=== PATIENT | female | born 1990 | race Caucasian/White ===

== ENCOUNTER 2024-01-06 23:05 | Emergency (ER) | payer MEDICAID, SELFPAY ==
[2024-01-06 23:08] VITALS: BP 151/99; PULSE 91; TEMP 36.7; O2SAT 100; BMI 31.8
--- NOTE | 2024-01-06 23:19 | XR_ITS ---
The [address] [address] Patient Name: LILA DUMONT MRN: [id number] date: 1990 Sex: F Assigned Patient Location: ER Current Patient Location: ED.MAIN Accession/Order Number: [id number] Exam Date: 01/06/2024 23:12 Report Date: 01/06/2024 23:54 At the request of: MELBA WALKER Procedure: XR foot RT min 3V EXAM: XR foot RT min 3V HISTORY: The patient is a 33-year-old female. Rule out foreign body COMPARISON: None. FINDINGS: The right foot is radiographically negative with no evidence of fracture, dislocation, joint space narrowing, osteophytes, or other osseous or articular abnormalities. No radiopaque foreign bodies are seen. XR/XR foot RT min 3V IMPRESSION: Negative. Electronically authenticated by: RENE DUMAS Date: 01/06/2024 23:54
--- NOTE | 2024-01-06 23:20 | ED_ITS ---
HPI - Wound/Laceration General Chief Complaint: Wound/Laceration Stated Complaint: LE INJURY Time Seen by Provider: 01/06/24 23:07 Source: patient Mode of arrival: walk-in Limitations: no limitations History of Present Illness HPI narrative: 33-year-old female presents for a wound to her right foot. This was sustained tonight when a metal grill brush broke in half and the shaft of the brush hit her on her right foot in the proximal area of the hallux on the dorsal side. The bristles did not hit her. It has been more than 10 years since she had a tetanus shot. Related Data Home Medications ?Medication ?Instructions ?Recorded ?Confirmed No Known Home Medications 01/06/24 01/06/24 Allergies Allergy/AdvReac Type Severity Reaction Status Date / Time No Known Drug Allergies Allergy Verified 01/06/24 23:14 Review of Systems ROS Narrative A ten point review of systems is negative except as noted above. Exam Narrative Exam Narrative: Nurses note and vital signs reviewed and patient is not hypoxic. General: The patient appears well and in no apparent distress. Patient is resting comfortably on cart. Skin: Warm, dry, no pallor noted. There is no rash noted. Head: Normocephalic, atraumatic Eye: Normal conjunctiva, no drainage Ears, Nose, Mouth, and Throat: oral mucosa is moist. Nares patent. Cardiovascular: Regular Rate and Rhythm Respiratory: Patient is in no distress, no accessory muscle use Back: Nontender GI: Soft and nontender Musculoskeletal: There is a superficial laceration on the dorsum of the right foot at the base of her hallux. It is not gaping or actively bleeding. No obvious foreign body. No other wound is present. Neurological: A&O, normal speech Psychiatric: Cooperative Constitutional Vital Signs, click to edit/add: Last Vital Signs Temp 98.1 F 01/06/24 23:08 Pulse 91 H 01/06/24 23:08 Resp 16 01/06/24 23:08 BP 151/99 H 01/06/24 23:08 Pulse Ox 100 01/06/24 23:08 Course Vital Signs Vital signs: Vital Signs Temperature 98.1 F 01/06/24 23:08 Pulse Rate 91 H 01/06/24 23:08 Respiratory Rate 16 01/06/24 23:08 Blood Pressure 151/99 H 01/06/24 23:08 Pulse Oximetry 100 01/06/24 23:08 Temperature 98.1 F 01/06/24 23:08 Pulse Rate 91 H 01/06/24 23:08 Respiratory Rate 16 01/06/24 23:08 Blood Pressure 151/99 H 01/06/24 23:08 Pulse Oximetry 100 01/06/24 23:08 MDM - Wound/Laceration MDM Narrative Medical decision making narrative: X-ray my interpretation shows no foreign body. Tetanus is updated and Steri- Strips were applied. Application checked by me and found to be appropriate, she is neurovascularly intact. Sutures are not indicated. Treatment diagnosis and follow-up were discussed with the patient. Differential Diagnosis Differential diagnosis: Likely laceration and other (Foreign body) Imaging Data Foot x-ray: My impression: No foreign body Discharge Plan Discharge Stand Alone Forms: Portal Instructions Chief Complaint: Wound/Laceration Clinical Impression: Laceration Patient Disposition: Home, Self-Care Time of Disposition Decision: 23:47 Condition: Good Mode of Transportation: Private Vehicle Prescriptions / Home Meds: No Action No Known Home Medications Print Language: Gabonese Instructions: Laceration (ED), Steristrips (ED) Referrals: CAMERON EDMONDS [Primary Care Provider] - 1 week
[2024-01-06] MEDS: ADACEL DIPH,PERTUSS(ACELL),TET VAC/PF 0.5 ML ADULT SYRINGE IM (23:49)
== END 2024-01-07 00:06 | disposition home or self-care (01) ==
PROVIDERS: Emergency Provider Emergency Medicine; PCP Family Medicine
DX: S91.311A Laceration without foreign body, right foot, initial encounter (principal); Z23 Encounter for immunization; W22.8XXA Striking against or struck by other objects, initial encounter
CPT/HCPCS: 73630; 90471; 90715; 99283

== ENCOUNTER 2024-08-10 23:31 | Emergency (ER) | payer MEDICAID, SELFPAY ==
[2024-08-10 23:37] VITALS: BP 148/91; PULSE 86; TEMP 36.6; O2SAT 100; BMI 30.8
[2024-08-10 23:41] VITALS: BP 148/91
--- NOTE | 2024-08-10 23:48 | XR_ITS ---
The [address] [address] Patient Name: LILA DUMONT MRN: [id number] date: 1990 Sex: F Assigned Patient Location: ER Current Patient Location: ER Accession/Order Number: [id number] Exam Date: 08/10/2024 23:55 Report Date: 08/11/2024 00:37 At the request of: MELBA WALKER Procedure: XR chest 1V EXAMINATION: XR chest 1V HISTORY: CP COMPARISON: No relevant comparison available. FINDINGS: LUNGS: Underexpanded lungs with mild stranding within right lung base and mild opacities within lateral left lung base obscuring the diaphragm margin. VASCULATURE: No increased pulmonary vasculature. PLEURA: No pneumothorax, effusion, or pleural thickening. CARDIAC: No cardiomegaly or cardiac silhouette abnormality. MEDIASTINUM: No visible mass or adenopathy. BONES: No fracture or visible bone lesion. OTHER: Negative. XR/XR chest 1V IMPRESSION: 1. Low lung volume examination with mild bibasilar infiltrates versus atelectasis. Electronically authenticated by: MADELINE GASPAR Date: 08/11/2024 00:37
--- NOTE | 2024-08-10 23:48 | ECG_ITS ---
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
--- NOTE | 2024-08-10 23:49 | ED.CHESTPAI1 ---
HPI - Chest Pain General Chief Complaint: Shortness of Breath/Dyspnea Stated Complaint: sob/chest pain Time Seen by Provider: 08/10/24 23:32 Mode of arrival: walk-in History of Present Illness HPI narrative: 34-year-old female presents to the emergency department for chest pain on the right side of her chest since been there since this morning, about 20 hours ago. No trauma or injury or heavy lifting. No fever cough or shortness of breath. No swelling in her legs. Related Data Home Medications ?Medication ?Instructions ?Recorded ?Confirmed No Known Home Medications 01/06/24 08/10/24 Allergies Allergy/AdvReac Type Severity Reaction Status Date / Time No Known Drug Allergies Allergy Verified 08/10/24 23:45 Review of Systems ROS Narrative A ten point review of systems is negative except as noted above. Exam Narrative Exam Narrative: Nurses note and vital signs reviewed and patient is not hypoxic. General: The patient appears well and in no apparent distress. Patient is resting comfortably on cart. Skin: Warm, dry, no pallor noted. There is no rash noted. Head: Normocephalic, atraumatic Eye: Normal conjunctiva, no drainage Ears, Nose, Mouth, and Throat: oral mucosa is moist. Nares patent. Cardiovascular: Regular Rate and Rhythm Respiratory: Patient is in no distress, no accessory muscle use, lungs are clear to auscultation, no wheezing, rales or rhonchi Back: non-tender GI: Soft and nontender Musculoskeletal: The patient has no evidence of calf tenderness, no pitting edema, symmetrical pulses noted bilaterally Neurological: A&O, normal speech Psychiatric: Cooperative Constitutional Vital Signs, click to edit/add: Last Vital Signs Temp 98 F 08/10/24 23:37 Pulse 86 08/10/24 23:37 Resp 18 08/10/24 23:37 BP 148/91 H 08/10/24 23:37 Pulse Ox 100 08/10/24 23:37 O2 Del Method Room Air 08/10/24 23:37 Course Vital Signs Vital signs: Vital Signs Temperature 98 F 08/10/24 23:37 Pulse Rate 86 08/10/24 23:37 Respiratory Rate 18 08/10/24 23:37 Blood Pressure 148/91 H 08/10/24 23:37 Pulse Oximetry 100 08/10/24 23:37 Oxygen Delivery Method Room Air 08/10/24 23:37 Temperature 98 F 08/10/24 23:37 Pulse Rate 86 08/10/24 23:37 Respiratory Rate 18 08/10/24 23:37 Blood Pressure 148/91 H 08/10/24 23:37 Pulse Oximetry 100 08/10/24 23:37 Oxygen Delivery Method Room Air 08/10/24 23:37 MDM - Chest Pain MDM Narrative Medical decision making narrative: Her workup here is negative including troponin, chest x-ray, and D-dimer. We talked about stress being a possible cause for this. Nonetheless there is no evidence of PE or acute coronary syndrome or pneumothorax. Treatment diagnosis and follow-up were discussed with the patient. Differential Diagnosis Differential diagnosis: Likely pneumothorax, unstable angina pectoris, atypical chest pain, st elevation myocardial infarction, costochondritis and chest pain Lab Data Attestation: I reviewed the patient's lab results. Labs: Lab Results 08/10/24 Range/Units 23:55 WBC 10.8 (4.0-11.0) 10^3/uL RBC 4.39 (4.20-5.40) 10^6/uL Hgb 12.6 (12.0-16.0) g/dL Hct 38.3 (36.0-48.0) % MCV 87.2 (81.0-99.0) fL MCH 28.7 (26.7-34.0) pg MCHC 32.9 (29.9-35.2) g/dL RDW 11.9 (11.0-15.0) % Plt Count 305 (150-450) 10^3/uL MPV 9.5 (9.5-13.5) fL Neut % (Auto) 61.9 (43.0-75.0) % Lymph % (Auto) 29.1 (20.5-60.0) % [place] % (Auto) 7.3 (1.7-12.0) % Eos % (Auto) 1.1 (0.9-7.0) % Baso % (Auto) 0.3 (0.2-2.0) % Neut # (Auto) 6.7 H (1.4-6.5) 10^3/uL Lymph # (Auto) 3.2 (1.2-3.8) 10^3/uL [place] # (Auto) 0.8 (0.3-0.8) 10^3/uL Eos # (Auto) 0.1 (0.0-0.7) 10^3/uL Baso # (Auto) 0.0 (0.0-0.1) 10^3/uL Abs Immat Gran (auto) 0.03 (0.00-0.03) 10^3/uL Imm/Tot Granulo (auto) 0.3 (0.0-0.5) % D-Dimer 0.41 (<=0.59) mg/L FEU Sodium 139 (136-145) mmol/L Potassium 3.9 (3.5-5.1) mmol/L Chloride 103 (98-107) mmol/L Carbon Dioxide 27.9 (21.0-32.0) mmol/L Anion Gap 12.0 BUN 16.0 (7.0-18.0) mg/dL Creatinine 0.83 (0.55-1.02) mg/dL Est GFR ( Amer) >60 (>=60 mL/min/1.73m^2) Est GFR (Non-Af Amer) >60 (>=60 mL/min/1.73m^2) BUN/Creatinine Ratio 19.3 Glucose 102 (74-106) mg/dL Calcium 9.1 (8.5-10.1) mg/dL Troponin I High Sens <4.0 L (4.0-51.3) pg/mL Imaging Data Chest x-ray: Radiologist's impression: ITS Impressions Chest X-Ray 08/10/24 23:48 IMPRESSION: 1. Low lung volume examination with mild bibasilar infiltrates versus atelectasis. Electronically authenticated by: MADELINE GASPAR Date: 08/11/2024 00:37 ECG Data Attestation: I personally reviewed and interpreted this ECG as follows: (EKG on my interpretation shows normal sinus rhythm with a rate of 83 and no acute change) Heart Score History: Slightly/Non-Suspicious ECG: Normal Age: <45 years Risk Factors: No Risk Factors Troponin: <Normal Limit Total Heart Score Recommendations & Risks:: 0 Discharge Plan Discharge Chief Complaint: Shortness of Breath/Dyspnea Clinical Impression: Chest pain Patient Disposition: Home, Self-Care Time of Disposition Decision: 00:58 Condition: Good Mode of Transportation: Private Vehicle Prescriptions / Home Meds: No Action No Known Home Medications Print Language: Taiwanese Instructions: Chest Pain (ED) Referrals: CAMERON EDMONDS [Primary Care Provider] - 1 week
[2024-08-11] VITALS (7 sets, daily range): PULSE 83–94; O2SAT 98–100
[2024-08-11 00:06] LABS: Basophils Percent Auto 0.3 % (0.2-2.0); Eosinophils Absolute Auto 0.1 10^3/uL (0.0-0.7); Eosinophils Percent Auto 1.1 % (0.9-7.0); Hematocrit 38.3 % (36.0-48.0); Hemoglobin 12.6 g/dL (12.0-16.0); Immature Granulocytes Abs Auto 0.03 10^3/uL (0.00-0.03); Immature Granulocytes Pct Auto 0.3 % (0.0-0.5); Lymphocytes Absolute Auto 3.2 10^3/uL (1.2-3.8); Lymphocytes Percent Auto 29.1 % (20.5-60.0); Mean Corpuscular HGB Conc 32.9 g/dL (29.9-35.2); Mean Corpuscular Hemoglobin 28.7 pg (26.7-34.0); Mean Corpuscular Volume 87.2 fL (81.0-99.0); Mean Platelet Volume 9.5 fL (9.5-13.5); Monocytes Absolute Auto 0.8 10^3/uL (0.3-0.8); Monocytes Percent Auto 7.3 % (1.7-12.0); Neutrophils Absolute Auto 6.7 10^3/uL (1.4-6.5); Neutrophils Percent Auto 61.9 % (43.0-75.0); Platelet Count 305 10^3/uL (150-450); Red Blood Count 4.39 10^6/uL (4.20-5.40); Red Cell Distribution Width 11.9 % (11.0-15.0); White Blood Count 10.8 10^3/uL (4.0-11.0)
[2024-08-11 00:19] LABS: D Dimer 0.41 mg/L FEU (<=0.59)
[2024-08-11 00:26] LABS: BUN Creatinine Ratio 19.3; Calcium 9.1 mg/dL (8.5-10.1); Carbon Dioxide 27.9 mmol/L (21.0-32.0); Chloride 103 mmol/L (98-107); Estimated GFR (African America >60 (>=60 mL/min/1.73m^2); Estimated GFR (Non-African Ame >60 (>=60 mL/min/1.73m^2); Glucose 102 mg/dL (74-106); Potassium 3.9 mmol/L (3.5-5.1); Sodium 139 mmol/L (136-145); Troponin I High Sensitivity <4.0 pg/mL (4.0-51.3)
== END 2024-08-11 01:08 | disposition home or self-care (01) ==
PROVIDERS: Emergency Provider Emergency Medicine; PCP Family Medicine
DX: R07.9 Chest pain, unspecified (principal)
CPT/HCPCS: 36415; 71045; 80048; 84484; 85025; 85378; 93005; 99285